=== PATIENT | female | born 1995 | race Caucasian/White ===

== ENCOUNTER 2017-05-11 21:51 | Emergency (ER) | payer OTHER ==
[2017-05-11 22:02] VITALS: BP 134/69; PULSE 102; RESP 20; TEMP 101.7
[2017-05-11] MEDS ORDERED: AMOXIC-POT CLAV 875MG STARTER 2 EACH TABLET PO STA (22:33)
[2017-05-11] MEDS ORDERED: ACETAMINOPHEN TAB 500 MG TAB PO STA (22:33)
[2017-05-11] MEDS ORDERED: IBUPROFEN 600 MG TAB PO STA (22:33)
--- NOTE | 2017-05-11 22:38 | ED ---
General Adult HPI - General Chief complaint: ENT Stated complaint: congestion/sore throat/fever Time Seen by Provider: 05/11/17 22:29 Source: patient, family, RN notes reviewed Mode of arrival: ambulatory Limitations: no limitations - History of Present Illness Initial comments: 21-year-old female presents emergency department with chief complaint of sore throat and fever. Patient states she's been sick for the past few days. Left extremity Motrin Tylenol was 2 days ago. Patient denies any nausea vomiting with this. Patient states just smoke but no increased cough today. Patient was concerned due to her continued fever and sore throat so she thought that she should be seen. Patient states she is not currently having any other symptoms at this type. Patient denies any recent shortness of breath, chest pain , back pain, abdominal pain, nausea vomiting, numbness or tingling, dysuria or hematuria, constipation or diarrhea, headaches or visual changes, or any other current symptoms. - Related Data Previous Rx's Medication Instructions Recorded Albuterol Inhaler [Ventolin Hfa 1 - 2 puff INHALATION Q4-6H PRN #1 05/11/17 Inhaler] inhaler Amoxicillin/Potassium Clav 1 tab PO Q12HR #20 tab 05/11/17 [Augmentin 875-125 Tablet] predniSONE 50 mg PO DAILY #5 tab 05/11/17 Allergies Allergy/AdvReac Type Severity Reaction Status Date / Time No Known Allergies Allergy Verified 05/11/17 22:03 Review of Systems ROS Statement: Those systems with pertinent positive or pertinent negative responses have been documented in the HPI. ROS Other: All systems not noted in ROS Statement are negative. Past Medical History Past Medical History: Asthma History of Any Multi-Drug Resistant Organisms: None Reported Past Surgical History: No Surgical Hx Reported Past Anesthesia/Blood Transfusion Reactions: Unable to Obtain Past Psychological History: No Psychological Hx Reported Smoking Status: Current every day smoker Past Alcohol Use History: Occasional Past Drug Use History: Marijuana, Methamphetamine General Exam - General Exam Comments Initial Comments: General exam: Alert, active, comfortable in no apparent distress Head: Normocephalic Eyes: Normal reaction of pupils, equal size, normal range of extraocular motion Ears: normal external ear canals, pink tympanic membranes with normal cone of light Nose: clear with pink turbinates Throat: Patient has enlarged tonsils with erythema and exudates noted Neck: no masses, no nuchal rigidity Chest: no chest wall deformity Lungs: equal air entry with no crackles, mildly CVS: S1 and S2 normal with no audible mumurs, regular rhythm Abdomen: no hepatosplenomegaly, normal bowel sounds, no guarding or rigidity Spine: no scoliosis or deformity Skin: no rashes Neurological: No focal deficits, tone is normal in all 4 extremities Limitations: no limitations Course Vital Signs 05/11/17 21:57 Temperature 101.7 F H Pulse Rate 102 H Respiratory 20 Rate Blood Pressure 134/69 O2 Sat by Pulse 95 Oximetry Medical Decision Making - Medical Decision Making 21-year-old female presents with appears to be pharyngitis. This tenderness patient on Augmentin. We discussed follow-up. We discussed the importance of smoking. We discussed Motrin Tylenol for fever. We did discuss return parameters and follow-up. Patient stated that she understood and she is agreement plan. All questions have been answered. She'll be discharged. Disposition Clinical Impression: Acute pharyngitis, Acute bronchitis Disposition: HOME SELF-CARE Condition: Stable Instructions: Pharyngitis (ED), Acute Bronchitis (ED) Additional Instructions: Please use medication as discussed. Please follow up with family doctor if symptoms have not improved over the next two days. Please return to the emergency room if your symptoms increase or worsen or for any other concerns. Prescriptions: Albuterol Inhaler [Ventolin Hfa Inhaler] 1 - 2 puff INHALATION Q4-6H PRN #1 inhaler PRN Reason: Cough Amoxicillin/Potassium Clav [Augmentin 875-125 Tablet] 1 tab PO Q12HR #20 tab predniSONE 50 mg PO DAILY #5 tab Referrals: Kath Diallo MD [Primary Care Provider] - 1-2 days Time of Disposition: 22:37
== END 2017-05-11 22:50 | disposition home or self-care (01) ==
LOC: EC 21:51
DX: J20.9 Acute bronchitis, unspecified (principal); J02.9 Acute pharyngitis, unspecified; F17.200 Nicotine dependence, unspecified, uncomplicated
CPT/HCPCS: 99283

== ENCOUNTER → 2018-07-15 | Outpatient (CLI) | payer OTHER ==
--- NOTE | 2018-07-15 15:10 | US ---
EXAMINATION TYPE: US OB anatomy transabd DATE OF EXAM: 07/15/2018 COMPARISON: NONE HISTORY: Z34.82 Encounter for supervision of other normal TECHNIQUE: Transabdominal (TA) EXAM MEASUREMENTS: GESTATIONAL AGE / DATING Physician Established: (21 weeks/4 days) EDC: 02/14/19 Dates by LMP: (21 weeks/4 days) EDC: 02/14/19 Dates by First Scan: not available Dates by Current Scan for: (21 weeks/ 4 days) EDC: 02/14/19 SURVEY IUP: Single PLACENTA: Posterior PREVIA: No previa IRAIDA: 11.4 cm CERVICAL LENGTH (transabdominal: norm > 3.0cm): 4.1 cm BIOMETRY PRESENTATION: Variable BPD: 4.6 cm 20 weeks / 0 days HC: 17.4 cm 20 weeks / 0 days AC: 15.6 cm 20 weeks / 6 days FL: 3.3 cm 20 weeks / 3 days ESTIMATED WEIGHT IN GRAMS: grams 356 g ESTIMATED WEIGHT IN LBS/OZ: 0 lbs. 13 oz. WEIGHT PERCENTAGE BASED ON ESTABLISHED DATE: 21 % HC/AC: 1.1 FL/AC: 21 HEART RATE: 146 bpm RHYTHM: Normal ANATOMY SEEN (within normal limits): * Lateral Vent (< 1 cm) 0.7 cm * Cisterna Magna (< 1.1 cm) 0.5 cm * Nuchal Fold (< 0.6 cm) 0.4 cm * Cerebellum (varies with age) 1.7 cm Choroid Plexus (bilateral) Midline Falx Cavus Septi Pellucidi Four Chamber Heart Outflow tracts: LVOT/RVOT Stomach Situs Nose / Lips Diaphragm Kidneys (bilateral) Bladder Cord Insert Three Vessel Cord Longitudinal Spine Transverse Spine Arms (bilateral) . Legs (bilateral) IMPRESSION: Findings compatible with a viable of 21 weeks 4 days with an EDC of 02/14/2019 and a heart rate of 146 bpm
== END | disposition home or self-care (01) ==
LOC: RADUSWWP 13:54
PROVIDERS: ATTEND Obstetrics & Gynecology
DX: Z34.80 Encounter for supervision of other normal pregnancy, unspecified trimester (principal); Z3A.00 Weeks of gestation of pregnancy not specified
CPT/HCPCS: 76811

== ENCOUNTER → 2018-11-12 | Outpatient (CLI) | payer OTHER ==
--- NOTE | 2018-11-13 07:56 | US ---
EXAMINATION TYPE: US OB >= 14 wk fetus DATE OF EXAM: 11/12/2018 COMPARISON: None CLINICAL HISTORY: Z34.80 Encounter for supervision of other normal p, assess growth TECHNIQUE: OBTA GESTATIONAL AGE / DATING Physician Established: (38 weeks/5 days) EDC: 11/21/2018 Dates by LMP: (38 weeks/5 days) EDC: 11/21/2018 Dates by First Scan: ( 37weeks/ 4days) EDC: 11/29/2018 Dates by Current Scan: (34 weeks/2 days) EDC: 12/22/2018 SURVEY IUP: Single PLACENTA: Fundal PREVIA: No Previa IRAIDA: 18.5 cm Normal CERVICAL LENGTH (transabdominal: norm > 3.0cm): 3.6 cm BIOMETRY PRESENTATION: Vertex LIE: Longitudinal BPD: 8.6 cm 34 weeks / 4 days HC: 30.8 cm 34 weeks / 2 days AC: 33.0 cm 37 weeks / 0 days FL: 6.6 cm 34 weeks / 0 days ESTIMATED WEIGHT IN GRAMS: 2733 grams ESTIMATED WEIGHT IN LBS/OZ: 6 lbs. 0 oz. WEIGHT PERCENTAGE BASED ON ESTABLISHED DATES: 6.6% HC/AC: 0.9 Normal FL/AC: 20.0 Normal HEART RATE: 133 bpm RHYTHM: Normal growth\age measured multiple time and was consistently off by more then 3 weeks, left message a t office regarding findings. IMPRESSION: Viable of 34 weeks 2 days with an EDC of 12/22/2018. growth measurements appears to be off by more than 3 weeks and should be correlated clinically.
== END | disposition home or self-care (01) ==
LOC: RADUSMAIN 17:20
PROVIDERS: ATTEND Obstetrics & Gynecology
DX: Z34.83 Encounter for supervision of other normal pregnancy, third trimester (principal)
CPT/HCPCS: 76805

== ENCOUNTER 2020-08-30 22:09 | Emergency (ER) | payer OTHER ==
[2020-08-30 22:16] VITALS: BP 138/87; PULSE 95; RESP 18; TEMP 97.6
--- NOTE | 2020-08-30 22:33 | ED ---
Medical Clearance HPI - General Chief complaint: Drug Screen Stated complaint: [facility]-D[facility] screen Time Seen by Provider: 08/30/20 22:27 Source: patient, RN notes reviewed Mode of arrival: ambulatory - History of Present Illness Initial comments: Patient is a 25-year-old female that presents to emergency department to get a urine drug screen due to her employer being suspicious of drug use. Patient did report to me that she recently used meth as early as of today. She denied any other drug use or substance abuse. She was in no apparent distress or pain while sitting up in bed during exam and interview. She denied any chest pain first breath headache nausea vomiting diarrhea constipation fever fatigue chills Home medications: Previous Rx's Medication Instructions Recorded Albuterol Inhaler (Mhu) [Ventolin 1 - 2 puff INHALATION Q4-6H PRN #1 05/11/17 Hfa Inhaler (Mhu)] inhaler Amoxicillin/Potassium Clav 1 tab PO Q12HR #20 tab 05/11/17 [Augmentin 875-125 Tablet] predniSONE 50 mg PO DAILY #5 tab 05/11/17 Allergies/Adverse reactions: Allergies Allergy/AdvReac Type Severity Reaction Status Date / Time No Known Allergies Allergy Verified 08/30/20 22:14 Review of Systems ROS Statement: Those systems with pertinent positive or pertinent negative responses have been documented in the HPI. ROS Other: All systems not noted in ROS Statement are negative. Past Medical History Past Medical History: Asthma History of Any Multi-Drug Resistant Organisms: None Reported Past Surgical History: No Surgical Hx Reported Past Anesthesia/Blood Transfusion Reactions: Unable to Obtain Past Psychological History: No Psychological Hx Reported Smoking Status: Current some day smoker Past Alcohol Use History: Occasional Past Drug Use History: Marijuana, Methamphetamine General Exam Limitations: no limitations General appearance: alert, in no apparent distress Head exam: Present: atraumatic, normocephalic, normal inspection Eye exam: Present: normal appearance, PERRL, EOMI. Absent: scleral icterus, conjunctival injection, periorbital swelling Neck exam: Present: normal inspection Respiratory exam: Present: normal lung sounds bilaterally. Absent: respiratory distress, wheezes, rales, rhonchi, stridor Cardiovascular Exam: Present: regular rate, normal rhythm, normal heart sounds. Absent: systolic murmur, diastolic murmur, rubs, gallop, clicks GI/Abdominal exam: Present: soft, normal bowel sounds. Absent: distended, tenderness, guarding, rebound, rigid Extremities exam: Present: normal inspection, full ROM, normal capillary refill. Absent: tenderness, pedal edema, joint swelling, calf tenderness Neurological exam: Present: alert, oriented X3, CN II-XII intact Psychiatric exam: Present: normal affect, normal mood Skin exam: Present: warm, dry, intact, normal color. Absent: rash Course Vital Signs 08/30/20 22:12 Temperature 97.6 F Pulse Rate 95 Respiratory 18 Rate Blood Pressure 138/87 O2 Sat by Pulse 100 Oximetry Medical Decision Making - Medical Decision Making 25-year-old female presented for [facility] drug screen. Patient does report methamphetamine use today. Patient gave urine sample be sent to an outpatient facility for testing. Patient will follow-up outpatient. Case discussed with Dr. Baez, patient can discharge home. Disposition Clinical Impression: Methamphetamine use Disposition: HOME SELF-CARE Condition: Stable Instructions (If sedation given, give patient instructions): Methamphetamine Abuse (ED) Additional Instructions: Please return to the Emergency Department if symptoms worsen or any other concerns. Follow-up outpatient with urine drug screen results. Is patient prescribed a controlled substance at d/c from ED?: No Referrals: None,Stated [Primary Care Provider] - 1-2 days Time of Disposition: 22:44
== END 2020-08-30 22:48 | disposition home or self-care (01) ==
LOC: EC 22:09
DX: F15.90 Other stimulant use, unspecified, uncomplicated (principal); J45.909 Unspecified asthma, uncomplicated; F17.200 Nicotine dependence, unspecified, uncomplicated
CPT/HCPCS: 99283

== ENCOUNTER 2022-02-18 06:00 | Inpatient (IN) | payer OTHER ==
[2022-02-18 06:49] LABS: Glucose,Whole Blood 93 mg/dL (70-110)
[2022-02-18] MEDS: LACTATED RINGERS 1,000 ML IV SCH ×3 (06:50→23:32)
[2022-02-18] MEDS ORDERED: TERBUTALINE 1 MG/ML VIAL SQ PRN (06:53)
[2022-02-18] MEDS ORDERED: LIDOCAINE 0.5% (PF) 5 MG/ML (50 ML SDV) SQ PRN (06:53)
[2022-02-18] MEDS ORDERED: OXYTOCIN 30 UNITS/500 ML NS 30 UNIT in SALINE 1 500ML.BAG IV SCH ×2 (07:00→14:15)
[2022-02-18 07:24] LABS: Basophils % (A) 0 %; Eosinophils # (A) 0.1 k/uL (0-0.7); Eosinophils % (A) 1 %; HCT 31.5 % (34.0-46.0); HGB 11.2 gm/dL (11.4-16.0); Lymphocytes # (A) 2.2 k/uL (1.0-4.8); Lymphocytes % (A) 19 %; MCH 33.4 pg (25.0-35.0); MCHC 35.5 g/dL (31.0-37.0); Monocytes % (A) 9 %; Neutrophils % (A) 69 %; Platelet Count 178 k/uL (150-450); RBC 3.35 m/uL (3.80-5.40); RDW 12.7 % (11.5-15.5); WBC 11.5 k/uL (3.8-10.6)
[2022-02-18] MEDS ORDERED: BUTORPHANOL 1 MG/ML 1 ML VIAL IV PRN (07:57)
--- NOTE | 2022-02-18 08:02 | P.HPOB ---
History of Present Illness H&P Date: 02/18/22 Chief Complaint: 39-0/7 weeks, induction, poorly controlled diabetes the patient is a 26-year-old 3 para 2 scissors or 2 admitted at 39-0/7 weeks as established by 26 week ultrasound. Her was complicate by fairly significantly late presentation. She was followed with serial growth ultrasounds and was also discovered have gestational diabetes and has had relatively poorly controlled blood sugars. Given her poorly controlled blood sugars and lack of consistent care as well as concerns for possible growth, the decision was made to proceed with induction of labor at 39 weeks as she also has a favorable cervix. On labor and delivery, all signs reassuring with a category 1 heart rate tracing. Blood sugar this morning is in the 90s. Group B s trep status is negative. Obstetrical history: 3 para 2 scissors or 2 with 2 term vaginal de liveries without complications. Current statistics are listed in history of present illness. EDC of 02/25/2022 was established by a 26 week ultrasound. Laboratory workup demonstrates a blood type of A+ with a negative antibody screen. Rubella status is immune. The remainder of the laboratory workup was within normal limits. One hour Glucola was elevated and she had a elevated. Glucose tolerance test follow-up. Diabetic minutes during the has been relatively poor. Group B strep status is negative. Gynecologic history: Unremarkable with no history of any infections to include STDs. Review of Systems review of systems is confined to history of present illness. Past Medical History Past Medical History: Asthma History of Any Multi-Drug Resistant Organisms: None Reported Past Surgical History: No Surgical Hx Reported Past Anesthesia/Blood Transfusion Reactions: No Reported Reaction Past Psychological History: No Psychological Hx Reported Smoking Status: Current every day smoker Past Alcohol Use History: None Reported Past Drug Use History: Marijuana, Methamphetamine - Past Family History Mother Family Medical History: No Reported History Medications and Allergies Home Medications Medication Instructions Recorded Confirmed Type Albuterol Inhaler [Ventolin Hfa 1 - 2 puff INHALATION Q4-6H PRN #1 05/11/17 Rx Inhaler] inhaler Pnv No.175/Iron Fum/Folic Acid 1 capsule PO DAILY 02/18/22 02/18/22 History [ Complete Tablet] Allergies Allergy/AdvReac Type Severity Reaction Status Date / Time No Known Allergies Allergy Verified 08/30/20 22:14 Exam Vital Signs Temp Pulse Resp BP Pulse Ox 02/18/22 06:52 97.2 F L 96 17 122/73 96 Intake and Output 02/17/22 02/18/22 02/18/22 22:59 06:59 14:59 Other: Weight 73.482 kg in general, this is a well-developed, well-nourished white female in no acute distress. Her heart has a regular rhythm and rate without murmur. Her lungs clear to auscultation bilaterally in all briones. Her abdomen is gravid, nondistended, has normal active bowel sounds, soft, nontender, and without any palpable masses aside from uterine fundus. Her extremities are without any cyanosis, clubbing, or edema and are nontender to palpation bilaterally. Digital cervical examination demonstrates her cervix to be 3 cm dilated, approximately 50% effaced, the vertex in presentation at -2-3 station. Artificial rupture of membranes is carried out demonstrating clear fluid. Results Result Diagrams: 02/18/22 06:51 Abnormal Lab Results - Last 24 Hours (Table) 02/18/22 Range/Units 06:51 WBC 11.5 H (3.8-10.6) k/uL RBC 3.35 L (3.80-5.40) m/uL Hgb 11.2 L (11.4-16.0) gm/dL Hct 31.5 L (34.0-46.0) % Neutrophils # 8.0 H (1.3-7.7) k/uL Assessment and Plan (1) Gestational diabetes Current Visit: Yes Status: Acute Code(s): O24.419 - GESTATIONAL DIABETES MELLITUS IN , UNSP CONTROL SNOMED Code(s): 30541163 (2) Normal labor and delivery Current Visit: No Status: Acute Code(s): O80 - ENCOUNTER FOR FULL-TERM UNCOMPLICATED DELIVERY SNOMED Code(s): 23302314 Plan: the patient is admitted for elective induction of labor secondary to circumstances noted in history of present illness. She is at Pitocin started and artificial rupture of membranes carried out. She will have close maternal and surveillance and expectant management will be practiced. She is a good candidate for either IV or epidural analgesia, whichever she may choose.
[2022-02-18 10:23] LABS: Glucose,Whole Blood 76 mg/dL (70-110)
[2022-02-18] MEDS ORDERED: ROPIVACAINE 5 MG/ML 20 ML AMPULE ONE (11:43)
[2022-02-18] MEDS ORDERED: SODIUM CHLORIDE 0.9% 100 ML BAG ONE (11:43)
[2022-02-18] MEDS ORDERED: fentaNYL (PF) 50 MCG/ML 5 ML AMP ONE (11:43)
[2022-02-18] MEDS ORDERED: diphenhydrAMINE 50 MG CAP PO PRN (14:07)
[2022-02-18] MEDS ORDERED: HYDROcodone/APAP 5-325MG 1 EACH TAB PO PRN (14:07)
[2022-02-18] MEDS ORDERED: HYDROCORTISONE 2.5% RECTAL CREAM 30 GM TUBE RECTAL PRN (14:07)
[2022-02-18] MEDS ORDERED: SIMETHICONE 80 MG CHEWABLE PO PRN (14:07)
[2022-02-18] MEDS ORDERED: HYDROcodone/APAP 7.5-325MG 1 EACH TAB PO PRN (14:07)
[2022-02-18] MEDS ORDERED: BENZOCAINE/MENTHOL SPRAY 1 GM/SPRAY AEROSOL TOPICAL PRN (14:07)
[2022-02-18] MEDS ORDERED: LANOLIN CREAM 5 GM TUBE TOPICAL PRN (14:07)
[2022-02-18] MEDS ORDERED: diphenhydrAMINE 25 MG CAP PO PRN (14:07)
[2022-02-18] MEDS ORDERED: diphenhydrAMINE 50 MG/ML 1 ML VIAL IVP PRN ×2 (14:07)
[2022-02-18] MEDS ORDERED: ZOLPIDEM 5 MG TAB PO PRN (14:07)
--- NOTE | 2022-02-18 14:12 | P.PROBDLV ---
Vaginal Delivery Note - . Vaginal Delivery Note: the patient is a 26-year-old 3 para 2 scissors or 2 admitted at 39-0/7 weeks by poor dating parameters. She is admitted for elective induction as she was diagnosed with gestational diabetes and has been relatively poorly controlled. On labor and delivery, all signs reassuring with a category 1 heart rate tracing. Group B strep status is negative. She had Pitocin augmentation started followed by artificial rupture of membranes for clear fluid. She made progress through the latent phase of labor and had an epidural catheter placed for analgesia. Should progress fairly quickly to complete and pushed over the course of approximately 3-4 contractions to a normal spontaneous vaginal delivery of a viable 7 lbs. 4 oz. baby boy with Apgars of 9 at 1 minute and 9 at 5 minutes delivered in the direct occiput anterior position. The placenta was delivered spontaneously, intact, and grossly normal with a grossly normal, centrally inserted three-vessel cord. There were no laceration of the perineum, vagina, or cervix. There were no complications. All sponge, instrument, needle counts were correct. Estimated blood loss was approximately 150 mL. Both mother and infant are resting comfortably in recovery.
[2022-02-18] MEDS: SENNOSIDES-DOCUSATE SODIUM 1 EACH TAB PO SCH (21:02)
[2022-02-18] MEDS: IBUPROFEN 600 MG TAB PO PRN (22:36)
[2022-02-19] MEDS: ACETAMINOPHEN TAB 325 MG TAB PO PRN ×2 (02:20→08:59)
[2022-02-19] MEDS: IBUPROFEN 600 MG TAB PO PRN ×2 (04:45→11:52)
[2022-02-19 05:31] LABS: Basophils % (A) 0 %; Eosinophils # (A) 0.1 k/uL (0-0.7); Eosinophils % (A) 1 %; HGB 11.1 gm/dL (11.4-16.0); Lymphocytes # (A) 2.9 k/uL (1.0-4.8); Lymphocytes % (A) 23 %; MCH 32.3 pg (25.0-35.0); MCHC 33.8 g/dL (31.0-37.0); MCV 95.7 fL (80.0-100.0); Mean Platelet Volume 11.5; Monocytes # (A) 0.9 k/uL (0-1.0); Monocytes % (A) 7 %; Neutrophils % (A) 65 %; Platelet Count 170 k/uL (150-450); RBC 3.45 m/uL (3.80-5.40); RDW 13.1 % (11.5-15.5); WBC 12.3 k/uL (3.8-10.6)
--- NOTE | 2022-02-19 08:21 | P.DS ---
Providers Date of admission: 02/18/22 06:28 Expected date of discharge: 02/19/22 Attending physician: Cole Blackmon Primary care physician: Stated None - Discharge Diagnosis(es) (1) Gestational diabetes Current Visit: Yes Status: Acute (2) Normal labor and delivery Current Visit: No Status: Acute Hospital Course: the patient is a 26-year-old 3 para 2001 admitted at 39-0/7 weeks by late dating parameters. She is admitted for induction of labor secondary to poorly controlled gestational diabetes and inconsistent care. Her was otherwise uncomplicated. On labor and delivery, all signs are reassuring with a category 1 heart rate tracing and her blood sugars were normal. Group B strep status is negative. She had Pitocin started followed by artificial rupture of membranes. She later had a epidural placed for analgesia. She made fairly rapid progress through the latent and active phase of labor to complete and then pushed fairly quickly to a normal spontaneous vaginal delivery of a viable 7 lbs. 4 oz. baby boy with Apgars of 9 at 1 minute and 9 at 5 minutes. Her course was unremarkable with vital signs being stable and her temperature was afebrile throughout. She was deemed stable for discharge on day #1 was discharged home to follow-up in the office in 6 weeks' time routinely. Discharge instructions included calling for any significantly increased bleeding or foul-smelling lochia, significantly increased fever abdom inal pain, perineal complaints, breast complaints, or anything also concerned her. She was additionally instructed to have nothing in the vagina for at least 6 weeks time to include intercourse. She understood her instructions and agrees follow up as noted above. Discharge medications included continued vitamins as she has opted to breast-feed as well as [id number] analgesic pain medications. Maternal blood type is A+ and rubella status is immune. Procedures: #1. Pitocin induction #2. Artificial rupture of membranes #3. Epidural analgesia #4. Normal spontaneous vaginal delivery Patient Condition at Discharge: Stable Plan - Discharge Summary New Discharge Prescriptions: No Action Albuterol Inhaler [Ventolin Hfa Inhaler] 1 - 2 puff INHALATION Q4-6H PRN #1 inhaler PRN Reason: Cough Pnv No.175/Iron Fum/Folic Acid [ Complete Tablet] 1 capsule PO DAILY Discharge Medication List Albuterol Inhaler [Ventolin Hfa Inhaler] 1 - 2 puff INHALATION Q4-6H PRN #1 inhaler 05/11/17 [Rx] Pnv No.175/Iron Fum/Folic Acid [ Complete Tablet] 1 capsule PO DAILY 02/18/22 [History] Follow up Appointment(s)/Referral(s): Cole Blackmon MD [STAFF PHYSICIAN] - 6 Weeks Discharge Disposition: HOME SELF-CARE
[2022-02-19] MEDS: SENNOSIDES-DOCUSATE SODIUM 1 EACH TAB PO SCH (08:56)
[2022-02-19 12:17] VITALS: BP 119/71; PULSE 76; RESP 18; TEMP 97.5
== END 2022-02-19 15:00 | disposition home or self-care (01) | DRG 807 ==
LOC: 4FBP 06:28
PROVIDERS: ADMIT Obstetrics & Gynecology; ATTEND Obstetrics & Gynecology
PROC: 10E0XZZ Delivery of Products of Conception, External Approach (ICD-10-PCS; principal; 2022-02-18)
PROC: 10907ZC Drainage of Amniotic Fluid, Therapeutic from Products of Conception, Via Natural or Artificial Opening (ICD-10-PCS; 2022-02-18)
PROC: 3E033VJ Introduction of Other Hormone into Peripheral Vein, Percutaneous Approach (ICD-10-PCS; 2022-02-18)
PROC: 4A0HXCZ Measurement of Products of Conception, Cardiac Rate, External Approach (ICD-10-PCS; 2022-02-18)
DX: O24.429 Gestational diabetes mellitus in childbirth, unspecified control (principal); Z37.0 Single live birth; J45.909 Unspecified asthma, uncomplicated; O99.334 Smoking (tobacco) complicating childbirth; O99.52 Diseases of the respiratory system complicating childbirth; F17.210 Nicotine dependence, cigarettes, uncomplicated; Z3A.39 39 weeks gestation of pregnancy
CPT/HCPCS: 85025; 86850; 86900; 86901

== ENCOUNTER 2023-04-21 01:59 | Inpatient (IN) | payer OTHER ==
[2023-04-21] MEDS ORDERED: SIMETHICONE 80 MG CHEWABLE PO PRN (02:46)
[2023-04-21] MEDS ORDERED: HYDROCORTISONE 2.5% RECTAL CREAM 30 GM TUBE RECTAL PRN (02:46)
[2023-04-21] MEDS ORDERED: BENZOCAINE/MENTHOL SPRAY 1 GM/SPRAY AEROSOL TOPICAL PRN (02:46)
[2023-04-21] MEDS ORDERED: ACETAMINOPHEN TAB 325 MG TAB PO PRN (02:46)
[2023-04-21] MEDS ORDERED: ZOLPIDEM 5 MG TAB PO PRN (02:46)
[2023-04-21] MEDS ORDERED: diphenhydrAMINE 50 MG/ML 1 ML VIAL IVP PRN (02:46)
[2023-04-21] MEDS ORDERED: LANOLIN CREAM 5 GM TUBE TOPICAL PRN (02:46)
[2023-04-21] MEDS ORDERED: diphenhydrAMINE 25 MG CAP PO PRN (02:46)
--- NOTE | 2023-04-21 02:56 | P.HPOB ---
History of Present Illness H&P Date: 04/21/23 Chief Complaint: Contractions, no care Please note this H&P and delivery note are dictated post delivery due to the precipitous nature and which this patient presented to labor and delivery triage. This patient is a 27-year-old 4 para 4 female with unknown estimated date of confinement and estimated last menstrual period August 2022 who presented by EMS to labor and delivery with complaints of contractions that she states started at approximately 9:00 this evening. Patient has had no care this . Patient states that her previous physician was Dr. Blackmon however she attempted to contact the office multiple times and received no phone calls back. She began having contractions this evening and contacted EMS. Upon arrival to labor and delivery she was complete and precipitously delivered a viable female . In questioning the patient she denies any past medical history or obstetrical problems. She's had 3 previous vaginal deliveries. Patient denies any history of drug use. Review of Systems Constitutional: Reports as per HPI Genitourinary: Reports Menstruation: Reports amenorrhea Past Medical History Past Medical History: Asthma Additional Past Medical History / Comment(s): Patient reports 3 previous vaginal deliveries History of Any Multi-Drug Resistant Organisms: None Reported Past Surgical History: No Surgical Hx Reported Past Anesthesia/Blood Transfusion Reactions: No Reported Reaction Past Psychological History: No Psychological Hx Reported Smoking Status: Current every day smoker Past Alcohol Use History: None Reported Past Drug Use History: None Reported, Methamphetamine - Past Family History Mother Family Medical History: No Reported History Medications and Allergies Home Medications Medication Instructions Recorded Confirmed Type Albuterol Inhaler [Ventolin Hfa 1 - 2 puff INHALATION Q4-6H PRN #1 05/11/17 02/18/22 Rx Inhaler] inhaler Pnv No.175/Iron Fum/Folic Acid 1 capsule PO DAILY 02/18/22 02/18/22 History [ Complete Tablet] Allergies Allergy/AdvReac Type Severity Reaction Status Date / Time No Known Allergies Allergy Verified 08/30/20 22:14 Exam - OBG Physical Exam Vulva: both: normal Vagina: no discharge Uterus: enlarged Assessment and Plan Assessment: This is a 27-year-old 4 para 4 female unknown gestational age, suspected term , who presents to labor and delivery in advanced active labor and precipitously deliver is of viable female . Please see dictated delivery note. Plan is to resume care, consult manager social work due to the lack of care, blood work and cultures. Baby is doing well however is taken to special care due to low-temperature for sepsis evaluation. No abnormal odor was noted at the time of delivery and patient denies any abnormal vaginal discharge. (1) No care in current in third trimester Current Visit: Yes Status: Acute Code(s): O09.33 - SUPRVSN OF PREG W INSUFFICIENT ANTENAT CARE, THIRD TRIMESTER SNOMED Code(s): 375441287 (2) Precipitous delivery Current Visit: Yes Status: Acute Code(s): O62.3 - PRECIPITATE LABOR SNOMED Code(s): 04596549
[2023-04-21 02:58] VITALS: RESP 16
[2023-04-21 02:59] LABS: Glucose,Whole Blood 104 mg/dL (70-110)
[2023-04-21] MEDS ORDERED: OXYTOCIN 30 UNITS/500 ML NS 30 UNIT in SALINE 1 500ML.BAG IV SCH (03:00)
--- NOTE | 2023-04-21 03:01 | P.PROBDLV ---
Vaginal Delivery Note - . Vaginal Delivery Note: Please see dictated H&P in patient's presentation. I was contacted that this patient presented to labor and delivery by EMS completely dilated. Immediately upon arrival to the unit, the patient precipitously delivered a viable female at 0209 hrs. Infant had Apgars of 8 and 8 and grossly appears normal. Baby was immediately assessed by a special care nurse. After delivery of the the placenta spontaneously delivered intact as well. Inspection of the perineum shows a first-degree laceration which was anesthetized with 1% lidocaine and then repaired with a 3-0 Vicryl in the usual fashion. Excellent reapproximation is noted. Estimated blood loss is approximately 100 mL. All counts are correct 3. There are no complications. Infant and mother are stable in triage we transferred to suite. Baby will be transferred to special care nursery for evaluation.
[2023-04-21 03:41] LABS: Basophils # (A) 0.1 k/uL (0-0.2); Basophils % (A) 0 %; Eosinophils # (A) 0.1 k/uL (0-0.7); Eosinophils % (A) 0 %; HCT 35.1 % (34.0-46.0); HGB 11.6 gm/dL (11.4-16.0); Lymphocytes # (A) 1.7 k/uL (1.0-4.8); Lymphocytes % (A) 11 %; MCH 30.2 pg (25.0-35.0); MCHC 33.2 g/dL (31.0-37.0); MCV 91.2 fL (80.0-100.0); Mean Platelet Volume 11.8; Monocytes # (A) 0.9 k/uL (0-1.0); Monocytes % (A) 5 %; Neutrophils # (A) 13.2 k/uL (1.3-7.7); Neutrophils % (A) 82 %; RBC 3.84 m/uL (3.80-5.40); RDW 13.8 % (11.5-15.5); WBC 16.1 k/uL (3.8-10.6)
[2023-04-21 03:44] LABS: Platelet Count 172 k/uL (150-450)
--- NOTE | 2023-04-21 06:55 | P.MSEPDOC ---
Presenting Problems - Arrival Data Date of Arrival on Unit: 04/21/23 Time of Arrival on Unit: 02:02 Mode of Transport: EMS - Complaint OB-Reason for Admission/Chief Complaint: Possible Onset of Labor Comment: patient presents to triage via ems in active labor Medical History - Information : 4 Para: 3 Term: 3 : 0 Abortions: Spontaneous or Elective: 0 Number of Living Children: 3 - Gestational Age Gestational Age by TAMIKO (wks/days): 37 Weeks and 1 Days - History Complications: No Care Review of Systems - Review of Systems Constitutional: No problems Breast: No problems ENT: No problems Cardiovascular: No problems Respiratory: No problems Gastrointestinal: No problems Genitourinary: No problems Musculoskeletal: No problems Neurological: No problems Skin: No problems Vital Signs - Temperature Temperature: 97.4 F Temperature Source: Temporal Artery Scan - Pulse Pulse Oximetery Pulse Rate: 63 Pulse Assessment Method: Pulse Oximetry - Respirations Respiratory Rate: 16 Oxygen Delivery Method: Room Air O2 Sat by Pulse Oximetry: 100 - Blood Pressure Right Arm Blood Pressure: 129/85 Blood Pressure Mean: 99 Blood Pressure Source: Automatic Cuff Physician Notification - Physician Notified Physician Notified Date: 04/21/23 Physician Notified Time: 02:02 Maternal Triage Index - Maternal Triage Index Presenting for scheduled procedure w/no complaint: No - Stat/Priority 1 Stat Priority 1: No - Urgent/Priority 2 Urgent Priority 2: No - Prompt/Priority 3 Prompt Priority 3: No - Non-Urgent/Priority 4 Non-Urgent Priority 4: Yes Criteria Met for Priority 4: patient presents to triage via ems in active labor Disposition - Disposition OB Disposition: Admit I agree with the RN Medical Screening Exam: Yes Case reviewed; plan agreed upon as documented in EMR&OBIX.: Yes Diagnosis: RELATED CONDITIONS, UNSPECIFIED, THIRD TRIMESTER
[2023-04-21 07:21] LABS: Mucus,Urine Many /hpf; RBC,Urine >182 /hpf (0-5); WBC,Urine >182 /hpf (0-5)
[2023-04-21 07:23] LABS: Appearance,Urine Turbid (Clear); Color,Urine Dark Red
[2023-04-21 07:24] LABS: Amphetamine Screen,Urine Detected (NotDetected); Barbiturate Screen,Urine Not Detected (NotDetected); Benzodiazepines Screen,Urine Not Detected (NotDetected); Cocaine Screen,Urine Not Detected (NotDetected); Methadone Screen, Urine Not Detected (NotDetected); Opiate Screen,Urine Not Detected (NotDetected); Oxycodone Screen, Urine Not Detected (NotDetected); Phencyclidine Screen,Urine Not Detected (NotDetected); Tricyclic Antidepressant,Urine Not Detected (NotDetected); Urn Cannabinoid Scrn Detected (NotDetected)
[2023-04-21] MEDS: IBUPROFEN 600 MG TAB PO PRN ×2 (08:09→18:38)
[2023-04-21] MEDS ORDERED: bisacodyL 10 MG SUPP RECTAL PRN (09:00)
[2023-04-21 10:39] LABS: Hepatitis B Surface Antigen Nonreactive
[2023-04-21] MEDS: SENNOSIDES-DOCUSATE SODIUM 1 EACH TAB PO SCH ×2 (10:42→23:34)
[2023-04-21 13:12] LABS: HIV 2 AB Non-Reactive (Non-Reactive); HIV AB P24 Non-Reactive (Non-Reactive); HIV P24 AG Non-Reactive (Non-Reactive)
[2023-04-21] MEDS: LACTATED RINGERS 1,000 ML IV SCH (22:05)
--- NOTE | 2023-04-22 06:33 | P.PNOBGVD ---
Subjective - Subjective Patient reports: Reports appetite normal, Reports voiding normally, Reports pain well controlled, Reports ambulating normally : doing well, in NICU (TWAN scoring) Objective - Latest Vital Signs Latest vital signs: Vital Signs Temp Pulse Resp BP BP Pulse Ox 04/21/23 23:25 97.6 F 85 16 123/60 04/21/23 15:39 97.5 F L 98 16 126/76 04/21/23 12:00 98.6 F 69 16 127/80 04/21/23 08:01 97.6 F 69 123/74 04/21/23 06:55 97.4 F L 63 16 129/85 100 - Exam Lungs: bilateral: normal Chest: Normal S1, Normal S2 Extremities: Present: normal Abdomen: Present: normal appearance, soft Uterus: Present: normal, firm - Labs Labs: Abnormal Lab Results - Last 24 Hours (Table) 04/21/23 04/21/23 Range/Units 03:14 06:00 Urine Appearance Turbid H (Clear) Urine RBC >182 H (0-5) /hpf Urine WBC >182 H (0-5) /hpf Urine WBC Clumps Many H (None) /hpf Urine Mucus Many H (None) /hpf Ur Amphetamines Screen Detected H (NotDetected) U Methamphetamines Scrn Detected H (NotDetected) U Marijuana (THC) Screen Detected H (NotDetected) Rubella IgG Antibody 44.80 H (0.00-9.00) IU/mL Assessment and Plan Assessment: day #1. Patient is resting without new complaints and wishes to go home. Patient's tox screen came back positive for amphetamines and methamphetamines and therefore her baby is in special care nursery for TWAN scoring. Patient is having normal lochia. Vital signs are stable and she is afebrile. CBC is pending. My impression this is a normal course. Per patient's request, patient will be discharged home follow up with me in 6 weeks. (1) No care in current in third trimester Current Visit: Yes Status: Acute Code(s): O09.33 - SUPRVSN OF PREG W INSUFFICIENT ANTENAT CARE, THIRD TRIMESTER SNOMED Code(s): 944376976 (2) Precipitous delivery Current Visit: Yes Status: Acute Code(s): O62.3 - PRECIPITATE LABOR SNOMED Code(s): 83298333
--- NOTE | 2023-04-22 06:38 | P.DS ---
Providers Date of admission: 04/21/23 02:21 Expected date of discharge: 04/22/23 Attending physician: Hardik David Primary care physician: Stated None - Discharge Diagnosis(es) (1) No care in current in third trimester Current Visit: Yes Status: Acute (2) Precipitous delivery Current Visit: Yes Status: Acute Hospital Course: Please see dictated H&P and delivery note for this patient's admission and delivery. In brief summary this is a 27-year-old 4 para 3 female with unknown gestational age suspected term who presented to labor and delivery in active labor and precipitously delivered a viable female . Of note patient's toxicology screen was positive for amphetamines and methamphetamines and patient's baby went to the nursery for TWAN scoring. Patient herself did well and was felt to be stable for discharge home follow up with me in 6 weeks for visit. Procedures: Normal spontaneous vaginal delivery Patient Condition at Discharge: Good Plan - Discharge Summary New Discharge Prescriptions: New Ibuprofen [Motrin] 600 mg PO Q6HR PRN #30 tab PRN Reason: Mild Pain (Scale 1 To 3) No Action Albuterol Inhaler [Ventolin Hfa Inhaler] 1 - 2 puff INHALATION Q4-6H PRN #1 inhaler PRN Reason: Cough Discharge Medication List Albuterol Inhaler [Ventolin Hfa Inhaler] 1 - 2 puff INHALATION Q4-6H PRN #1 inhaler 05/11/17 [Rx] Ibuprofen [Motrin] 600 mg PO Q6HR PRN #30 tab 04/22/23 [Rx] Follow up Appointment(s)/Referral(s): Hardik David MD [STAFF PHYSICIAN] - 06/02/23 9:45 am Patient Instructions/Handouts: Vaginal Delivery (DC) Activity/Diet/Wound Care/Special Instructions: No intercourse or anything per vagina for 7 days. Please call if any fever, chills, excessive vaginal bleeding, and/or abdominal pain. Discharge Disposition: HOME SELF-CARE
[2023-04-22] MEDS: SENNOSIDES-DOCUSATE SODIUM 1 EACH TAB PO SCH (08:10)
[2023-04-22 08:49] VITALS: BP 126/71; PULSE 97; TEMP 97.9
[2023-04-23 13:33] LABS: C. trachomatis,PCR Equivocal (Negative)
[2023-04-23 13:34] LABS: N. gonorrhoeae,PCR Equivocal (Negative)
== END 2023-04-22 08:30 | disposition home or self-care (01) | DRG 560 ==
LOC: FBPOP 01:59 → 4FBP 02:21
PROVIDERS: ADMIT Obstetrics & Gynecology; ATTEND Obstetrics & Gynecology
PROC: 10E0XZZ Delivery of Products of Conception, External Approach (ICD-10-PCS; principal; 2023-04-21)
PROC: 0HQ9XZZ Repair Perineum Skin, External Approach (ICD-10-PCS; 2023-04-21)
DX: O42.92 Full-term premature rupture of membranes, unspecified as to length of time between rupture and onset of labor (principal); O99.52 Diseases of the respiratory system complicating childbirth; J45.909 Unspecified asthma, uncomplicated; O62.3 Precipitate labor; O70.0 First degree perineal laceration during delivery; O99.324 Drug use complicating childbirth; F15.90 Other stimulant use, unspecified, uncomplicated; O99.334 Smoking (tobacco) complicating childbirth; F17.210 Nicotine dependence, cigarettes, uncomplicated; Z37.0 Single live birth; Z3A.37 37 weeks gestation of pregnancy
CPT/HCPCS: 80306; 81001; 85025; 86762; 86780; 86850; 86900; 86901; 87340; 87390; 87491; 87591; 88307; 99213

== ENCOUNTER 2024-09-18 09:19 | Emergency (ER) | payer OTHER ==
[2024-09-18 09:36] VITALS: BP 104/53; PULSE 78; TEMP 97.7
[2024-09-18 10:33] LABS: Influenza A Not Detected (Not Detectd); Influenza B Not Detected (Not Detectd); RSV Not Detected (Not Detectd)
--- NOTE | 2024-09-18 10:37 | ED ---
ENT HPI - General Chief complaint: ENT Stated complaint: Sore Throat Time Seen by Provider: 09/18/24 09:30 Source: patient, RN notes reviewed Mode of arrival: ambulatory Limitations: no limitations - History of Present Illness Initial comments: 29-year-old female with history of asthma presenting to the emergency department with complaints of sore throat dry cough over the past approximately 5 days. Patient endorses chills with no reported fevers. She denies rhinorrhea, congestion, chest pain. States that she has had mild difficulty breathing garcia barney she has been out of her albuterol inhaler at home. - Related Data Previous Rx's Medication Instructions Recorded Albuterol Inhaler [Ventolin Hfa 1 - 2 puff INHALATION Q4-6H PRN #1 05/11/17 Inhaler] inhaler Ibuprofen [Motrin] 600 mg PO Q6HR PRN #30 tab 04/22/23 Albuterol Inhaler [Ventolin Hfa 1 - 2 puff INHALATION Q6H PRN #1 09/18/24 Inhaler] each Amoxicillin 875 mg PO Q12HR #20 tablet 09/18/24 predniSONE [Deltasone] 60 mg PO ONCE #3 tab 09/18/24 Allergies Allergy/AdvReac Type Severity Reaction Status Date / Time No Known Allergies Allergy Verified 09/18/24 09:36 Review of Systems ROS Statement: Those systems with pertinent positive or pertinent negative responses have been documented in the HPI. ROS Other: All systems not noted in ROS Statement are negative. Past Medical History Past Medical History: Asthma Additional Past Medical History / Comment(s): Patient reports 3 previous vaginal deliveries History of Any Multi-Drug Resistant Organisms: None Reported Past Surgical History: No Surgical Hx Reported Past Anesthesia/Blood Transfusion Reactions: No Reported Reaction Past Psychological History: No Psychological Hx Reported Smoking Status: Current every day smoker Past Alcohol Use History: None Reported Past Drug Use History: None Reported, Methamphetamine - Past Family History Mother Family Medical History: No Reported History General Exam Limitations: no limitations General appearance: alert, in no apparent distress Eye exam: Present: normal appearance, PERRL, EOMI. Absent: scleral icterus, conjunctival injection, periorbital swelling Expanded Throat exam: tonsillar erythema, tonsillomegaly. negative: tonsillar exudate Neck exam: Present: normal inspection. Absent: tenderness, meningismus, lymphadenopathy Respiratory exam: Present: normal lung sounds bilaterally, wheezes. Absent: respiratory distress, rales, rhonchi, stridor Cardiovascular Exam: Present: regular rate, normal rhythm, normal heart sounds. Absent: systolic murmur, diastolic murmur, rubs, gallop, clicks GI/Abdominal exam: Present: soft, normal bowel sounds. Absent: distended, tenderness, guarding, rebound, rigid Extremities exam: Present: normal inspection, full ROM, normal capillary refill. Absent: tenderness, pedal edema, joint swelling, calf tenderness Back exam: Present: normal inspection Skin exam: Present: warm, dry, intact, normal color. Absent: rash Course Vital Signs 09/18/24 09:34 Temperature 97.7 F Pulse Rate 78 Respiratory 20 Rate Blood Pressure 104/53 O2 Sat by Pulse 98 Oximetry Medical Decision Making - Medical Decision Making Was pt. sent in by a medical professional or institution ([facility], JUICE WEIGHER, urgent care, hospital, or [place] [facility] facility...) When possible be specific @ -No Did you speak to anyone other than the patient for history (EMS, parent, family, police, friend...)? What history was obtained from this source @ -No Did you review nursing and triage notes (agree or disagree)? Why? @ -I reviewed and agree with nursing and triage notes Were old charts reviewed (outside hosp., previous admission, EMS record, old EKG, old radiological studies, urgent care reports/EKG's, [place] [facility] facility records)? Report findings @ -No old charts were reviewed Differential Diagnosis (chest pain, altered mental status, abdominal pain women, abdominal pain men, vaginal bleeding, weakness, fever, dyspnea, syncope, headache, dizziness, GI bleed, back pain, seizure, CVA, palpatations, mental health, musculoskeletal)? @ -COVID 19, RSV, influenza, pneumonia, acute bronchitis, URI, this list is not all inclusive EKG interpreted by me (3pts min.). @ -None X-rays interpreted by me (1pt min.). @ -None done CT interpreted by me (1pt min.). @ -None done U/S interpreted by me (1pt. min.). @ -None done What testing was considered but not performed or refused? (CT, X-rays, U/S, labs)? Why? @ -None What meds were considered but not given or refused? Why? @ -None Did you discuss the management of the patient with other professionals (professionals i.e. , PA, JUICE WEIGHER, lab, RT, psych nurse, geriatric social work professor, visual merchandising manager, teacher, job placement officer, disease case manager)? Give summary @ -No Was smoking cessation discussed for >3mins.? @ -No Was critical care preformed (if so, how long)? @ -No Were there social determinants of health that impacted care today? How? (Homelessness, low income, unemployed, alcoholism, drug addiction, transportation, low edu. Level, literacy, decrease access to med. care, skilled nursing, rehab)? @ -No Was there de-escalation of care discussed even if they declined (Discuss DNR or withdrawal of care, Hospice)? DNR status @ -No What co-morbidities impacted this encounter? (DM, HTN, Smoking, COPD, CAD, Cancer, CVA, ARF, Chemo, Hep., AIDS, mental health diagnosis, sleep apnea, morbid obesity)? @ -None Was patient admitted / discharged? Hospital course, mention meds given and route, prescriptions, significant lab abnormalities, going to OR and other pertinent info. @ -Discharge. 29-year-old female presents emergency room with sore throat. Patient is noted to have bilateral tonsillar erythema and tonsilomeagly with an erythematous pharynx. Patient is tested positive for strep. Patient will be treated with amoxicillin and a loading dose of steroids. She is also sent a refill of her albuterol inhaler. Case discussed with Dr. Mckeon Undiagnosed new problem with uncertain prognosis? @ -No Drug Therapy requiring intensive monitoring for toxicity (Heparin, Nitro, Insulin, Cardizem)? @ -No Were any procedures done? @ -No Diagnosis/symptom? @ -Strep pharyngitis Acute, or Chronic, or Acute on Chronic? @ -acute Uncomplicated (without systemic symptoms) or Complicated (systemic symptoms)? @ -uncomplicated Side effects of treatment? @ -No Exacerbation, Progression, or Severe Exacerbation? @ -No Poses a threat to life or bodily function? How? (Chest pain, [place], [place], pneumonia, PE, COPD, DKA, ARF, appy, cholecystitis, CVA, Diverticulitis, Homicidal, Suicidal, threat to staff... and all critical care pts) @ -No - Lab Data Lab Results 09/18/24 09/18/24 Range/Units 09:38 09:38 Influenza Type A (PCR) Not Detected (Not Detectd) Influenza Type B (PCR) Not Detected (Not Detectd) RSV (PCR) Not Detected (Not Detectd) SARS-CoV-2 (PCR) Not Detected (Not Detectd) Group A Strep (PCR) DETECTED A (Not Detectd) Disposition Clinical Impression: Strep pharyngitis Disposition: HOME SELF-CARE Condition: Good Instructions (If sedation given, give patient instructions): Strep Throat (DC) Additional Instructions: Please return to the Emergency Department if symptoms worsen or any other concerns. Prescriptions: Amoxicillin 875 mg PO Q12HR #20 tablet predniSONE [Deltasone] 60 mg PO ONCE #3 tab Albuterol Inhaler [Ventolin Hfa Inhaler] 1 - 2 puff INHALATION Q6H PRN #1 each PRN Reason: Shortness Of Breath Is patient prescribed a controlled substance at d/c from ED?: No Referrals: None,Stated [Primary Care Provider] - 1-2 days Time of Disposition: 10:37
[2024-09-18 11:00] VITALS: RESP 16
== END 2024-09-18 11:00 | disposition home or self-care (01) ==
LOC: EC 09:19
DX: J02.0 Streptococcal pharyngitis (principal); B95.0 Streptococcus, group A, as the cause of diseases classified elsewhere; F17.200 Nicotine dependence, unspecified, uncomplicated
CPT/HCPCS: 87636; 87651; 99283